=== PATIENT | male | born 2005 | race Caucasian/White ===

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

== ENCOUNTER 2024-01-05 18:21 | Observation (INO) | payer OTHER ==
[~2024-01-05] VITALS: Ht 175.3 cm; Wt 68.0 kg
[2024-01-05 19:11] LABS: BASOPHILS ABSOLUTE AUTO 0.04 K/mm3 (0.00-0.23); BASOPHILS PERCENT AUTO 1 % (0-2); EOSINOPHILS ABSOLUTE AUTO 0.11 K/mm3 (0.00-0.68); EOSINOPHILS PERCENT AUTO 2 % (0-6); Hematocrit 45.7 % (37.0-53.0); Hemoglobin 15.9 g/dL (13.5-17.5); IMMATURE GRAN ABSOLUTE AUTO 0.02 K/mm3 (0.00-0.10); IMMATURE GRAN PERCENT AUTO 0 % (0-1); LYMPHOCYTES ABSOLUTE AUTO 1.61 K/mm3 (0.84-5.20); LYMPHOCYTES PERCENT AUTO 24 % (21-46); MONOCYTES ABSOLUTE AUTO 0.88 K/mm3 (0.16-1.47); MONOCYTES PERCENT AUTO 13 % (4-13); Mean Corpuscular HGB 29.5 pg (26.0-34.0); Mean Corpuscular HGB Conc 34.8 g/dL (31.5-36.5); Mean Corpuscular Volume 85 fL (80-100); NEUTROPHILS ABSOLUTE AUTO 4.07 K/mm3 (1.96-9.15); NEUTROPHILS PERCENT AUTO 61 % (41-73); Platelet Count 292 K/mm3 (150-400); RDW Coefficient Variation 12.8 % (11.7-14.2); RDW Standard Deviation 39.6 fL (35.1-46.3); Red Blood Cell Count 5.39 M/mm3 (4.30-5.90); White Blood Cell Count 6.73 K/mm3 (4.00-11.30)
[2024-01-05 19:36] LABS: Ethanol (Alcohol), Blood, Med 157 mg/dL; Salicylate <1.7 mg/dL (2.8-20.0)
[2024-01-05 19:40] LABS: Acetaminophen, Random <2.0 ug/mL (10.0-30.0); Alanine Aminotransfer (ALT/SGP 17 U/L (12-78); Albumin, Blood 4.6 g/dL (3.4-5.0); Albumin/Globulin Ratio 1.3 (0.8-1.8); Alk Phos 98 U/L (50-136); Anion Gap 3 mmol/L (6-16); Aspartate Aminotrans (AST/SGOT 11 U/L (12-37); Bilirubin, Total 0.4 mg/dL (0.1-1.0); Blood Urea Nitrogen 5 mg/dL (8-24); Bun/Creatinine Ratio 6.2 (12.0-20.0); CO2, Blood 30 mmol/L (21-32); Calcium, Blood 9.2 mg/dL (8.5-10.1); Chloride, Blood 109 mmol/L (98-108); Globulin, Blood 3.6 g/dL (2.2-4.0); Glomerular Filtration Rate 130 (60-); Glucose, Blood 98 mg/dL (70-99); Potassium, Blood 3.7 mmol/L (3.5-5.5); Sodium, Blood 142 mmol/L (136-145); Total Protein, Blood 8.2 g/dL (6.4-8.2)
[2024-01-05 21:39] LABS: Source, Urine Clean Catch
[2024-01-05 22:36] LABS: Bilirubin, Urine Neg (Neg); Blood, Urine Neg (Neg); Glucose Qualitative, Urine Neg (Neg); Ketones, Urine 1+ (Neg); Leukocyte Esterase, Urine Neg (Neg); Nitrite, Urine Neg (Neg); Protein, Urine Neg (Neg); Urobilinogen, Urine NORM (Normal)
[2024-01-05 22:37] LABS: Appearance, Urine Clear (Clear); Color, Urine Yellow (P-Yellow)
[2024-01-05 22:59] LABS: U Amphetamine Screen Not Detected; U Barbituate Screen Not Detected; U Benzodiazapine Screen Not Detected; U Buprenorphine Screen Not Detected; U Cannabinoids Screen DETECTED; U Cocaine Screen Not Detected; U Methadone Screen Not Detected; U Methamphetamine Screen Not Detected; U Opiates Screen Not Detected; U Oxycodone Screen Not Detected; U Phencyclidine Screen Not Detected
[2024-01-06] MEDS ORDERED: TraZODone HCl 50 MG Tab PO PRN (13:25)
[2024-01-06] MEDS ORDERED: Sertraline HCl 100 MG Tab PO SCH (14:00)
[2024-01-06 21:27] VITALS: BP 128/81
== END 2024-01-07 09:15 | disposition other institution (70) ==
LOC: ER 18:21 → EOR 18:22
PROVIDERS: Physician Assistant; ADMIT Emergency Medicine
DX: F33.9 Major depressive disorder, recurrent, unspecified (principal); J45.909 Unspecified asthma, uncomplicated; Z87.891 Personal history of nicotine dependence
CPT/HCPCS: 36415; 80053; 81003; 85025; 93005; 93010; 99285-25; A9270; G0378; G0480

== ENCOUNTER 2024-09-07 23:50 | Observation (INO) | payer OTHER ==
[~2024-09-07] VITALS: Ht 172.7 cm; Wt 70.3 kg
[2024-09-08 00:43] LABS: BASOPHILS ABSOLUTE AUTO 0.08 K/mm3 (0.00-0.23); BASOPHILS PERCENT AUTO 1 % (0-2); EOSINOPHILS ABSOLUTE AUTO 0.44 K/mm3 (0.00-0.68); EOSINOPHILS PERCENT AUTO 5 % (0-6); Hematocrit 47.5 % (37.0-53.0); Hemoglobin 16.7 g/dL (13.5-17.5); IMMATURE GRAN ABSOLUTE AUTO 0.02 K/mm3 (0.00-0.10); IMMATURE GRAN PERCENT AUTO 0 % (0-1); LYMPHOCYTES PERCENT AUTO 22 % (21-46); MONOCYTES ABSOLUTE AUTO 0.59 K/mm3 (0.16-1.47); MONOCYTES PERCENT AUTO 6 % (4-13); Mean Corpuscular HGB 30.3 pg (26.0-34.0); Mean Corpuscular HGB Conc 35.2 g/dL (31.5-36.5); Mean Corpuscular Volume 86 fL (80-100); Mean Platelet Volume 10.7 fL (9.1-12.4); NEUTROPHILS ABSOLUTE AUTO 6.12 K/mm3 (1.96-9.15); NEUTROPHILS PERCENT AUTO 66 % (41-73); Platelet Count 341 K/mm3 (150-400); RDW Coefficient Variation 11.9 % (11.7-14.2); RDW Standard Deviation 38.2 fL (35.1-46.3); Red Blood Cell Count 5.52 M/mm3 (4.30-5.90); White Blood Cell Count 9.25 K/mm3 (4.00-11.30)
[2024-09-08 00:59] LABS: Ethanol (Alcohol), Blood, Med 170 mg/dL; Salicylate 2.2 mg/dL (2.8-20.0)
[2024-09-08 01:08] LABS: Alanine Aminotransfer (ALT/SGP 64 U/L (12-78); Albumin, Blood 4.4 g/dL (3.4-5.0); Albumin/Globulin Ratio 1.1 (0.8-1.8); Alk Phos 85 U/L (50-136); Anion Gap 14 mmol/L (3-11); Aspartate Aminotrans (AST/SGOT 30 U/L (12-37); Bilirubin, Total 0.2 mg/dL (0.1-1.0); Blood Urea Nitrogen 10 mg/dL (8-24); Bun/Creatinine Ratio 10.9 (12.0-20.0); CO2, Blood 23 mmol/L (21-32); Calcium, Blood 9.1 mg/dL (8.5-10.1); Chloride, Blood 110 mmol/L (98-108); Creatinine, Blood 0.91 mg/dL (0.60-1.20); Glomerular Filtration Rate 123 (60-); Glucose, Blood 99 mg/dL (70-99); Potassium, Blood 3.9 mmol/L (3.5-5.5); Sodium, Blood 143 mmol/L (136-145); Total Protein, Blood 8.4 g/dL (6.4-8.2)
[2024-09-08 01:11] LABS: Acetaminophen, Random <2.0 ug/mL (10.0-30.0)
[2024-09-08 02:42] LABS: U Amphetamine Screen Not Detected; U Barbituate Screen Not Detected; U Benzodiazapine Screen Not Detected; U Buprenorphine Screen Not Detected; U Cannabinoids Screen Not Detected; U Cocaine Screen Not Detected; U Methadone Screen Not Detected; U Methamphetamine Screen Not Detected; U Opiates Screen Not Detected; U Oxycodone Screen Not Detected; U Phencyclidine Screen Not Detected
[2024-09-08 19:36] VITALS: BP 129/76
== END 2024-09-08 21:17 | disposition other institution (70) ==
LOC: ER 23:50 → EOR 23:51
PROVIDERS: ADMIT Emergency Medicine
DX: F31.9 Bipolar disorder, unspecified (principal); R45.851 Suicidal ideations; Z87.891 Personal history of nicotine dependence; Z88.0 Allergy status to penicillin
CPT/HCPCS: 36415; 80053; 80320; 81000; 85025; 93005; 93010; 99285-25; G0378; G0480

== ENCOUNTER 2024-09-08 12:27 | Inpatient (IN) | payer OTHER ==
[2024-09-08] MEDS ORDERED: FLU VACC TS2024-25(6MOS UP)/PF 45 MCG/0.5 ML SYRINGE IM SCH (16:55)
[2024-09-08] MEDS ORDERED: Ibuprofen 600 MG Tab PO PRN (16:55)
[2024-09-08] MEDS ORDERED: Acetaminophen 325 MG TABLET PO PRN (16:55)
[2024-09-08] MEDS ORDERED: Aluminum Hydroxide 320MG/5ML 473 ML PO PRN (17:00)
[2024-09-08] MEDS ORDERED: QUEtiapine Fumarate 200 MG Tab PO SCH (21:00)
--- NOTE | 2024-09-08 22:23 | NUR ---
PATIENT ARRIVED AT [facility] 2117, ACCOMPANIED BY STAFF AND SECURITY. HE WAS PLEASANT AND COOPERATIVE THROUGHOUT THE ADMISSION PROCESS. HE WAS ORIENTED TO UNIT AND WENT TO BED.
--- NOTE | 2024-09-09 04:10 | NUR ---
PATIENT ARRIVED ON UNIT AT 2116 AND WAS ADMITTED. HE WAS POLITE AND COOPERATIVE THROUGHOUT THE PROCESS. HE STATED THAT HE DOES WANT TO COMMIT SUICIDE BUT AT THE VERY MOMENT OF ADMISSION, HE FELT SAFER IN THE U AND "I'M ON THE FENCE". HE FEARS THAT HE WOULD FOLLOW THROUGH IF HE WERE NOT HERE. HE WAS COOPERATIVE WITH EVENING MEDICATIONS AND INTERACTED WELL DURING MEDICATION EDUCATION. HE THEN WENT TO BED AND WAS NOTED TO BE RESTING QUIETLY WITH EYES CLOSED AND RESPIRATIONS CONFIRMED. HE HAD NO S/SX SUICIDAL IDEATION THIS SHIFT.
[2024-09-09 07:54] VITALS: BP 122/87
[2024-09-09] MEDS ORDERED: Nicotine Polacrilex 2 MG Gum PO PRN (08:10)
[2024-09-09] MEDS ORDERED: Folic Acid 1 MG TAB PO SCH (09:00)
[2024-09-09] MEDS ORDERED: Thiamine HCl 100 MG Tab PO SCH (09:00)
[2024-09-09] MEDS ORDERED: Multivitamins 1 Tab PO SCH (09:00)
[2024-09-09] MEDS ORDERED: buPROPion HCL 150 MG TAB.SR.12H PO SCH (10:45)
--- NOTE | 2024-09-09 17:07 | NUR ---
SHIFT SUMMARY PT AxOx4. PLEASANT AND COOPERATIVE WITH CARE. PT HAS FOLLOWING TREATMENT PLAN INCLUDING TAKING MEDICATIONS PRESCRIBED, ATTENDING GROUPS, AND MINGLING WITH PEERS/STAFF ON THE UNIT. PT REPORTS FEELING LESS SI THIS AM, DENIES INTENT/PLAN. PT STARTED ON [employer] TODAY, PROVIDED PT EDUCATION. PT DENIES KNOWN SIDE EFFECTS. PT IS CURRENTLY SITTING IN [place] EATING DINNER. HE DENIED ANY NEEDS AT THIS TIME.
[2024-09-09 20:32] VITALS: BP 148/85
--- NOTE | 2024-09-10 00:14 | NUR ---
Patient sleeping without any behaviors or issues. We will continue to monitor every 15 minutes for safety.
--- NOTE | 2024-09-10 03:49 | NUR ---
ASSUMED CARE FROM PRIOR SHIFT. PATIENT IS A/O X4 ABLE TO VOICE NEEDS AND HAVE MEANINGFUL CONVERSATION. HE CURRENTLY DENIES SI, VH OR AH. HE IS COMPLIANT WITH MEDICATIONS, ASSESSMENT AND CARE. HE TELLS ME "I FEEL MUCH BETTER NOW THAT I SLEPT 8 HRS". HE MAKES GOOD EYE CONTACT, HE WAS SOCIALIZING WITH STAFF AND OTHER PATIENTS APPROPRIATELY. HE DID GO TO BED WITHOUT ENCOURAGMENT. HE DOES SLEEP THROUGH THE NIGHT WITHOUT BEHAVIORS OR ISSUES. NO S/S OF ALCOHOL WITHDRAWL.
[2024-09-10 08:09] VITALS: BP 119/76
--- NOTE | 2024-09-10 17:01 | NUR ---
SHIFT SUMARRY PT AA&OX4. PLEASANT AND COOPERATIVE WITH CARE. PT IS SOFT SPOKEN, EYE CONTACT IS APPROPRIATE. PT HAS BEEN UP FOR SHOWER, MEALS AND GROUP. HE IS SOCIALIZING MORE THAN YESTERDAY. DENIES ANXIETY, SI, AVH. DENIES ANY CURRENT MEDICATION SIDE EFFECTS. MOOD IS CALM AFFECT IS CONGRUENT. DENIES ANY CURRENT NEEDS OR CONCERNS. WILL CONTINUE POC
[2024-09-10 19:32] VITALS: BP 132/83
--- NOTE | 2024-09-11 00:39 | NUR ---
Patient sleeping, no noted behaviors or issues.
--- NOTE | 2024-09-11 04:10 | NUR ---
ASSUMED CARE FROM PRIOR SHIFT. PATIENT IS A/OX4, ABLE TO VOICE NEEDS AND HAVE MEANINGFUL CONVERSATION. HE IS SOCIALIZING WITH OTHER PATIENTS AND STAFF. HE IS COMPLIANT WITH MEDICATIONS, CARE AND ASSESSMENTS. HE CURRENTLY DENIES ANY SI, VH AND AH. HE DOES TELL ME "I STILL HAVE DEPRESSION BUT ITS NOT BAD". HE IS HAVING A POSITIVE REACTION TO MEDICATIONS, NUTRITION AND ADEQUATE SLEEP. HE GOES TO BED WITHOUT ENCOURAGMENT. HE SLEEPS THROUGH THE NIGHT. NO NOTED BEHAVIORS OR ISSUES. WE WILL CONTINUE WITH 15 MINUTE CHECKS FOR SAFETY.
--- NOTE | 2024-09-11 05:42 | NUR ---
PATIENT CONTINUES TO SLEEP THROUGH THE NIGHT. NO NOTED BEHAVIORS OR ISSUES. CONTINUE WITH 15 MINUTE SAFETY CHECKS.
[2024-09-11 08:03] VITALS: BP 125/80
--- NOTE | 2024-09-11 08:24 | NUR ---
AM ASSESSMENT PT UP TO DINING ROOM FOR BREAKFAST. PLEASANT AND COOPERATIVE WITH CARE/ MEDS. PT REPORTS HIGH ANXIETY HE IS RAPIDLY FOOT TAPING. PT AGREEABLE AND THANKFUL WHEN MENTIONED TALKING WITH PROVIDER FOR SOMETHING FOR ANXIETY. PT DENIES SI/HI OR AVH AT THIS CURRENT TIME. PT REPORTS DOING OK THIS MORNING. WILL CONTINUE TO MONITOR PER UNIT PROTOCOLS.
[2024-09-11] MEDS ORDERED: HydrOXYzine Pamoate 25 MG Cap PO PRN (11:25)
--- NOTE | 2024-09-11 12:32 | NUR ---
PT TO NURSES STATION ASKING ABOUT POSSIBLE DISCHARGE TODAY. PROVIDER NOTIFIED. EDUCATED PT ON AMA TODAY, REQUESTED/ APPROVED DISCHARGE FOR TOMORROW BUT NO F/U APPTS FOR CARE, OR SUGGESTED DISCHARGE FRIDAY WITH OUTPATIENT APPTS FOR F/U CARE. PT REPORTS AN UNDERSTANDING AND AGREEABLE TO WAIT TILL FRIDAY.
--- NOTE | 2024-09-11 17:59 | NUR ---
SHIFT SUMMARY PT COOPERATIVE AND PLEASANT THIS SHIFT. PT DENIES SI/HI OR AVH. PT AWAITING TO DISCHARGE TILL FRIDAY TO HAVE DISCHARGE APPTS AND RESOURCES. PT REPORTS FEELING GOOD AND APPEARS STATED MOOD. PT SHOWERED TODAY, HAD DAD VISIT, PARTICIPATED IN GROUP W/ PEERS AND STAFF OF GAMES, PUZZLES, MOVIES, AND COMMUNICATION WITH STAFF. PT HAS GREAT OUTLOOK WITH AFTERCARE PLANS AND LIFE GOALS. WILL CONTINUE TO MONITOR PER UNIT PROTOCOLS.
[2024-09-11 20:13] VITALS: BP 144/87
[2024-09-11 20:32] VITALS: BP 144/87
--- NOTE | 2024-09-12 04:20 | NUR ---
ASSUMED CARE FROM PRIOR SHIFT. PATIENT IS A/OX4, ABLE TO VOICE NEEDS AND HAVE MEANINGFUL CONVERSATION. HE IS SOCIALIZING WITH PATIENTS AND STAFF APPROPRIATELY. HE CURRENTLY DENIES SI,VH OR AH. HE IS ACTIVE IN HIS PLAN OF CARE. HE IS COMPLIANT WITH CARE, ASSESSMENT AND MEDICATIONS. HE SLEEPS THROUGH THE NIGHT. NO NOTED BEHAVIORS OR ISSUES. WE OSWALDO CONTINUE WITH 15 SAFETY CHECKS.
--- NOTE | 2024-09-12 06:12 | NUR ---
PATIENT SLEPT THROUGH THE NIGHT. NO NOTED ISSUES OR BEHAVIORS.
[2024-09-12 08:01] VITALS: BP 135/87
--- NOTE | 2024-09-12 08:14 | NUR ---
AM ASSESSMENT PT REPORTING SOME ANXIETY THIS AM, REQUESTING HYDROX W/ MEDS AND EFE GUM. PT DENYING SI OR AVH AT THIS TIME. PT CONTINUES TO LOOK FORWARD TO DISCHARGE AND MOVING FORWARD IN LIFE. PT INTERACTING W/ PEERS AND STAFF APPROPRIATELY. NO CONCERNING BEHAVIORS AT THIS TIME. WILL CONTINUE TO MONITOR PER UNIT PROTOCOLS AND PT SAFETY.
[2024-09-12] MEDS ORDERED: Nicotine 14 MG PATCH TOP ONE (11:50)
--- NOTE | 2024-09-12 17:52 | NUR ---
SHIFT SUMMARY PT PLEASANT AND COOPERATIVE. PT DENIES SI/HI OR AVH. PT ANTICIPATING DISCHARGE TOMORROW W/ F/U ARRANGEMENTS. PT PARTICIPATING W/ PEERS AND STAFF APPROPRIATELY. NO ACUTE CONCERNS THIS SHIFT.
[2024-09-12 19:55] VITALS: BP 140/90
--- NOTE | 2024-09-13 03:29 | NUR ---
ASSUMED CARE FROM PRIOR SHIFT. PATIENT IS A/OX4 ABLE TO VOICE NEEDS AND ENGAGE IN MEANINGFUL CONVERSATION. HE DENIES SI, AH AND VH. HE IS ABLE TO TO EXPRESS HE IS READY FOR DISCHARGE. HE IS UP AND ENGAGEING WITH OTHER PATIENTS AND STAFF. SOCIALIZING APPROPRIATELY. HE IS COMPLIANT WITH CARE, ASSESSMENT AND MEDICATIONS. HE GOES TO BED WITHOUT ENCOURAGEMENT. HE SLEEPS THROUGH THE NIGHT WITHOUT BEHAVIORS OR ISSUES.
--- NOTE | 2024-09-13 05:24 | NUR ---
PATIENT CONTINUES TO SLEEP, NO NOTED ISSUES OR BEHAVIORS.
[2024-09-13 08:06] VITALS: BP 127/80
[2024-09-13] MEDS ORDERED: Nicotine 14 MG PATCH TOP SCH (09:00)
[2024-09-13] MEDS ORDERED: BUPR150ER PO (11:34)
[2024-09-13] MEDS ORDERED: Nicoderm Cq1 EAC1 TOP (11:36)
[2024-09-13] MEDS ORDERED: QUET200 PO (11:37)
--- NOTE | 2024-09-13 12:40 | NUR ---
DISCHARGE NOTE PT AxOx4. PLEASANT AND COOPERATIVE WITH CARE. PT IS DISCHARGING HOME WITH HIS FATHER. PT DENIES SI/HI AND AVH. PT REPORTS FEELING READY FOR DC TODAY. HE HAS BEEN FOLLOWING [place] PLAN, INCLUDING TAKING MEDS PRESCRIBED, PARTICIPATING IN GROUPS AND MINGLING WITH PEERS/STAFF ON THE UNIT. DC INSTRUCTIONS PROVIDED INCLUDING INFO TO FOLLOW UP WITH [facility], DC MED LIST AND PT EDUCATION ON DIAGNOSIS AND MEDICATIONS. PT VERBALIZED UNDERSTANDING. DENIED FURTHER QUESTIONS AT THIS TIME. BELONGINGS RETURNED. PT WAS SAFELY ESCORTED OUT BY RN TO HIS RIDE WITH HIS DAD.
== END 2024-09-13 12:36 | disposition home or self-care (01) | DRG 885 ==
LOC: BHU 12:27
PROVIDERS: ADMIT Student in an Organized Health Care Education/Training Program
DX: F33.3 Major depressive disorder, recurrent, severe with psychotic symptoms (principal); Z56.0 Unemployment, unspecified; Z88.1 Allergy status to other antibiotic agents; Z79.899 Other long term (current) drug therapy
CPT/HCPCS: A9270; Q0177

== ENCOUNTER 2025-09-09 20:06 | Emergency (ER) | payer OTHER ==
[~2025-09-09] VITALS: Ht 175.3 cm; Wt 77.1 kg
[~2025-09-09 20:06] MED LIST changes: +BUPR150ER PO; +Nicoderm Cq1 EAC1 TOP; +QUET200 PO
[2025-09-09 20:35] LABS: BASOPHILS ABSOLUTE AUTO 0.05 K/mm3 (0.00-0.23); BASOPHILS PERCENT AUTO 1 % (0-2); EOSINOPHILS ABSOLUTE AUTO 0.41 K/mm3 (0.00-0.68); EOSINOPHILS PERCENT AUTO 6 % (0-6); Hematocrit 41.3 % (37.0-53.0); Hemoglobin 14.3 g/dL (13.5-17.5); IMMATURE GRAN ABSOLUTE AUTO 0.01 K/mm3 (0.00-0.10); IMMATURE GRAN PERCENT AUTO 0 % (0-1); LYMPHOCYTES ABSOLUTE AUTO 2.53 K/mm3 (0.84-5.20); LYMPHOCYTES PERCENT AUTO 35 % (21-46); MONOCYTES ABSOLUTE AUTO 0.74 K/mm3 (0.16-1.47); MONOCYTES PERCENT AUTO 10 % (4-13); Mean Corpuscular HGB Conc 34.6 g/dL (31.5-36.5); Mean Corpuscular Volume 88 fL (80-100); NEUTROPHILS ABSOLUTE AUTO 3.47 K/mm3 (1.96-9.15); NEUTROPHILS PERCENT AUTO 48 % (41-73); NRBC ABSOLUTE 0.00 K/mm3 (0.00-0.02); NRBC Auto 0.0 /100 WBC (0.0-0.2); Platelet Count 266 K/mm3 (150-400); RDW Coefficient Variation 12.6 % (11.7-14.2); RDW Standard Deviation 40.5 fL (35.1-46.3)
[2025-09-09 20:49] LABS: Alanine Aminotransfer (ALT/SGP 52.0 U/L (12-78); Albumin, Blood 4.3 g/dL (3.4-5.0); Albumin/Globulin Ratio 1.2 (0.8-1.8); Anion Gap 8.0 mmol/L (3-11); Aspartate Aminotrans (AST/SGOT 32.0 U/L (12-37); Bilirubin, Total 0.3 mg/dL (0.1-1.0); Blood Urea Nitrogen 11.0 mg/dL (8-24); CO2, Blood 27.0 mmol/L (21-32); Calcium, Blood 9.1 mg/dL (8.5-10.1); Chloride, Blood 107.0 mmol/L (98-108); Creatinine, Blood 0.94 mg/dL (0.60-1.20); Globulin, Blood 3.6 g/dL (2.2-4.0); Glucose, Blood 119.0 mg/dL (70-99); Magnesium, Blood 2.3 mg/dL (1.6-2.4); Potassium, Blood 3.1 mmol/L (3.5-5.5); Sodium, Blood 139.0 mmol/L (136-145); Total Protein, Blood 7.9 g/dL (6.4-8.2)
[2025-09-09 21:49] VITALS: BP 130/83
== END 2025-09-09 21:51 | disposition home or self-care (01) ==
LOC: ER 20:06
PROVIDERS: Student in an Organized Health Care Education/Training Program
DX: R07.9 Chest pain, unspecified (principal); F15.90 Other stimulant use, unspecified, uncomplicated; J45.909 Unspecified asthma, uncomplicated; Z87.891 Personal history of nicotine dependence; Z88.0 Allergy status to penicillin
CPT/HCPCS: 71045; 80053; 83735; 84484; 85025; 99284-25; J7120